=== PATIENT | male | born 1970 | race African-American/Black ===

== ENCOUNTER 2022-02-07 21:47 | Inpatient (IN) | payer OTHER ==
[~2022-02-07] VITALS: Ht 188 cm; Wt 95.3 kg
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
[2022-02-07] MEDS ORDERED: HYDROMORPHONE 1 MG/1 ML DISP.SYRIN ONE (22:13)
[2022-02-07] MEDS ORDERED: ONDANSETRON 4 MG/2 ML VIAL ONE (22:13)
[2022-02-07] MEDS ORDERED: ONDANSETRON 4 MG/2 ML VIAL IV ONE (22:15)
[2022-02-07] MEDS ORDERED: HYDROMORPHONE 1 MG/1 ML DISP.SYRIN IV ONE (22:15)
[2022-02-07 22:32] LABS: HEMATOCRIT 37.2 % (36.7-47.1); MEAN CORPUSCULAR HEMOGLOBIN 32.8 uug (23.8-33.4); MEAN CORPUSCULAR VOLUME 98.5 fL (73.0-96.2); PLATELET COUNT (AUTO) 312 K/uL (152-348)
[2022-02-07 22:34] LABS: POTASSIUM 3.7 mmol/L (3.5-5.1)
[2022-02-07 22:40] LABS: BILIRUBIN,DIRECT 0.1 mg/dL (0.0-0.2); BILIRUBIN,TOTAL 0.2 mg/dL (0.2-1.0)
[2022-02-07] MEDS ORDERED: METF-440 PO (23:02)
[2022-02-07] MEDS ORDERED: ATOR10TA PO (23:02)
[2022-02-07] MEDS ORDERED: ACET-73 PO (23:02)
[2022-02-07] MEDS ORDERED: LOSA100T31 PO (23:02)
[2022-02-07] MEDS ORDERED: FOLI1TAB94 PO (23:02)
[2022-02-07] MEDS ORDERED: INSU100C SQ (23:02)
[2022-02-07] MEDS ORDERED: AMLO2.5T4 PO (23:02)
[2022-02-08] MEDS ORDERED: HYDROMORPHONE 1 MG/1 ML DISP.SYRIN IV ONE
[2022-02-08] MEDS ORDERED: HYDROMORPHONE 1 MG/1 ML DISP.SYRIN ONE (00:03)
--- NOTE | 2022-02-08 03:47 | NUR ---
Called [facility] for panel call. Dr. Murphy marketing information manager.
[2022-02-08 04:00] VITALS: BP 138/94
--- NOTE | 2022-02-08 04:38 | NUR ---
Report given to Katiuska MNAE
--- NOTE | 2022-02-08 05:10 | NUR ---
Pt. admitted to [facility], under care of Dr. Murphy. Belongs List completed ALHAJI Harp aware of patient's arrival.
[2022-02-08] MEDS ORDERED: MORPHINE SULFATE 2 MG/1 ML DISP.SYRIN IV PRN (06:00)
[2022-02-08] MEDS ORDERED: REMEDY ESSENTIAL ZINC PASTE 113 GM TP PRN (06:00)
[2022-02-08] MEDS ORDERED: MAGNESIUM HYDROXIDE 30 ML LIQUID UDC PO PRN (06:00)
[2022-02-08] MEDS ORDERED: ONDANSETRON 4 MG/2 ML VIAL IV PRN (06:00)
[2022-02-08] MEDS ORDERED: HYDROCODONE/APAP 5-325MG TABLET PO PRN (06:00)
[2022-02-08] MEDS ORDERED: ACETAMINOPHEN 325 MG TABLET PO PRN (06:00)
[2022-02-08] MEDS ORDERED: DEXTROSE 50% 50 ML DISP.SYRIN IV PRN (06:00)
[2022-02-08] MEDS ORDERED: ZOLPIDEM 5 MG TABLET PO PRN (06:00)
[2022-02-08] MEDS: BLOOD SUGAR DIAGNOSTIC 1 EACH STRIP VI SCH ×4 (07:05→20:40)
[2022-02-08] MEDS: INSULIN REGULAR, HUMAN 300 UNIT/3 ML VIAL SQ PRN (07:09)
[2022-02-08] MEDS: FOLIC ACID 1 MG TABLET PO SCH (09:00)
[2022-02-08] MEDS: AMLODIPINE 2.5 MG TABLET PO SCH (09:00)
[2022-02-08] MEDS: LOSARTAN POTASSIUM 50 MG TABLET PO SCH (09:00)
[2022-02-08] MEDS: PANTOPRAZOLE SODIUM 40 MG VIAL IV SCH (09:18)
[2022-02-08 10:14] VITALS: BP 176/100
[2022-02-08] MEDS ORDERED: ACETAMINOPHEN ES 500 MG TABLET- SA PATIENTS-PAIN ONLY PO PRN (11:00)
[2022-02-08] MEDS: MORPHINE SULFATE 4 MG/1 ML DISP.SYRIN IV PRN ×2 (11:22→20:34)
[2022-02-08] MEDS: INSULIN LISPRO 300 UNIT/3 ML VIAL SQ SCH ×2 (11:30→17:28)
[2022-02-08 15:52] VITALS: BP 176/119
[2022-02-08] MEDS ORDERED: hydrALAZINE HCL 50 MG TABLET PO PRN (16:00)
--- NOTE | 2022-02-08 16:00 | NUR ---
BP 171/119. REPORTED TO DR. ZAPIEN. NEW ORDER FOR HYDRALAZINE 50MG Q4 PRN. ORDER IN PLACE. ALHAJI CHAPMAN.
--- NOTE | 2022-02-08 16:48 | NUR ---
CURRENT BP 148/93 HR 78 30 MIN AFTER HYDRALAZINE ADMIN. ALHAJI CHAPMAN
[2022-02-08] MEDS: METFORMIN HCL 500 MG TABLET PO SCH (17:19)
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
[2022-02-08 20:00] VITALS: BP 134/99
[2022-02-08] MEDS: ATORVASTATIN 10 MG TABLET PO SCH (20:34)
[2022-02-09] MEDS: MORPHINE SULFATE 4 MG/1 ML DISP.SYRIN IV PRN ×2 (01:31→19:56)
[2022-02-09 04:00] VITALS: BP 151/98
[2022-02-09 06:32] LABS: HEMATOCRIT 36.8 % (36.7-47.1); MEAN CORPUSCULAR HEMOGLOBIN 33.6 uug (23.8-33.4); MEAN CORPUSCULAR VOLUME 97.2 fL (73.0-96.2); PLATELET COUNT (AUTO) 324 K/uL (152-348)
[2022-02-09] MEDS: INSULIN LISPRO 300 UNIT/3 ML VIAL SQ SCH ×3 (06:48→17:05)
[2022-02-09] MEDS: BLOOD SUGAR DIAGNOSTIC 1 EACH STRIP VI SCH ×4 (06:49→20:46)
[2022-02-09] MEDS ORDERED: VANCOMYCIN 1000 MG VIAL ONE (06:54)
[2022-02-09] MEDS ORDERED: FENTANYL CITRATE 100 MCG/2 ML AMPUL ONE ×2 (07:00→10:25)
[2022-02-09] MEDS ORDERED: HYDROMORPHONE 2 MG/1 ML DISP.SYRIN ONE (07:00)
[2022-02-09] MEDS ORDERED: MIDAZOLAM HCL 2 MG/2 ML VIAL ONE (07:01)
[2022-02-09] MEDS ORDERED: FAMOTIDINE. 20 MG/2 ML VIAL IV ONE (07:01)
[2022-02-09] MEDS ORDERED: ROCURONIUM BROMIDE 50 MG/5 ML VIAL ONE (07:01)
[2022-02-09 07:04] LABS: CREATININE 0.9 mg/dL (0.6-1.3); PHOSPHOROUS 3.6 mg/dL (2.5-4.9); POTASSIUM 3.8 mmol/L (3.5-5.1)
--- NOTE | 2022-02-09 07:15 | NUR ---
Report received from Shira RN, Received patient awake, alert, oriented x 4, not in any form of distress, on room air. He denies any pain or discomfort at this time. Kept on NPO since midnight for planned surgery today. Call light placed within reach.
[2022-02-09 07:31] LABS: MAGNESIUM 1.2 mg/dL (1.8-2.4)
--- NOTE | 2022-02-09 07:37 | NUR ---
Patient picked up for surgery.
[2022-02-09] MEDS: METFORMIN HCL 500 MG TABLET PO SCH ×2 (08:00→17:15)
[2022-02-09] MEDS: FOLIC ACID 1 MG TABLET PO SCH (09:00)
[2022-02-09] MEDS: AMLODIPINE 2.5 MG TABLET PO SCH (09:00)
[2022-02-09] MEDS: LOSARTAN POTASSIUM 50 MG TABLET PO SCH (09:00)
[2022-02-09] MEDS: PANTOPRAZOLE SODIUM 40 MG VIAL IV SCH (09:00)
[2022-02-09] MEDS ORDERED: LABETALOL HCL 100 MG/20 ML VIAL ONE (10:25)
[2022-02-09] MEDS ORDERED: POTASSIUM CHLORIDE 20 MEQ in IV D5 1/2 NS 1000 ML 1,000 ML IV PRN (10:45)
[2022-02-09 11:25] LABS: LYMPHOCYTES % (MANUAL) 32 % (20-40); MONOCYTES % (MANUAL) 20 % (2-10); NEUTROPHILS % (MANUAL) 48 % (42-75)
[2022-02-09 11:52] VITALS: BP 129/85
--- NOTE | 2022-02-09 12:00 | NUR ---
Patient back from surgery. Patient is awake, alert, oriented x 4, not in any form of distress on room air. No complain of any pain or discomfort at this time. Dressing on the left hip with scanty drainage which OR nurse reported dressing just changed. Ice pack on left hip. Assisted with his needs. Call light and frequently used items placed within patient's reach.
[2022-02-09 12:15] VITALS: BP 132/89
[2022-02-09 13:45] VITALS: BP 117/88
[2022-02-09] MEDS: HYDROCODONE/APAP 10-325 MG TABLET PO PRN (14:17)
[2022-02-09] MEDS: INSULIN REGULAR, HUMAN 300 UNIT/3 ML VIAL SQ PRN ×3 (14:33→20:50)
[2022-02-09] MEDS: MAGNESIUM SULFATE/D5W 100 ML IV SCH ×4 (14:48→19:59)
[2022-02-09 15:12] VITALS: BP 138/66
[2022-02-09] MEDS: CEFAZOLIN 1 G in IV DEXTROSE 5% 50 ML IV SCH (18:32)
[2022-02-09 20:00] VITALS: BP 125/89
[2022-02-09] MEDS: ATORVASTATIN 10 MG TABLET PO SCH (20:50)
[2022-02-10] MEDS: HYDROCODONE/APAP 10-325 MG TABLET PO PRN ×4 (00:24→20:55)
[2022-02-10] MEDS: CEFAZOLIN 1 G in IV DEXTROSE 5% 50 ML IV SCH (00:56)
[2022-02-10 04:00] VITALS: BP 126/89
[2022-02-10] MEDS: MORPHINE SULFATE 4 MG/1 ML DISP.SYRIN IV PRN (05:14)
[2022-02-10 06:42] LABS: MAGNESIUM 1.6 mg/dL (1.8-2.4); POTASSIUM 3.8 mmol/L (3.5-5.1)
[2022-02-10] MEDS: BLOOD SUGAR DIAGNOSTIC 1 EACH STRIP VI SCH ×4 (06:44→20:54)
--- NOTE | 2022-02-10 06:47 | NUR ---
Patient slept intermittently, in no acute distress. Medicated for left leg pain with good effect. Left hip dressing intact with moderate amount of blood stain. Needs assessed and attended to. Call light within reach.
[2022-02-10] MEDS: INSULIN REGULAR, HUMAN 300 UNIT/3 ML VIAL SQ PRN ×4 (07:27→20:54)
[2022-02-10] MEDS: INSULIN LISPRO 300 UNIT/3 ML VIAL SQ SCH ×3 (07:31→15:52)
[2022-02-10] MEDS: LOSARTAN POTASSIUM 50 MG TABLET PO SCH (08:21)
[2022-02-10] MEDS: AMLODIPINE 2.5 MG TABLET PO SCH (08:21)
[2022-02-10] MEDS: PANTOPRAZOLE SODIUM 40 MG TABLET.DR PO SCH (08:21)
[2022-02-10] MEDS: METFORMIN HCL 500 MG TABLET PO SCH ×2 (08:21→17:07)
[2022-02-10] MEDS: FOLIC ACID 1 MG TABLET PO SCH (08:21)
[2022-02-10] MEDS ORDERED: MAGNESIUM OXIDE 400 MG TABLET PO ONE (10:00)
[2022-02-10 11:50] VITALS: BP 117/72
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
[2022-02-10 16:07] VITALS: BP 107/68
[2022-02-10] MEDS: ATORVASTATIN 10 MG TABLET PO SCH (20:26)
[2022-02-10 20:32] VITALS: BP 106/64
[2022-02-11] MEDS: HYDROCODONE/APAP 10-325 MG TABLET PO PRN ×2 (02:44→09:29)
[2022-02-11 04:16] VITALS: BP 131/90
[2022-02-11] MEDS: PANTOPRAZOLE SODIUM 40 MG TABLET.DR PO SCH (06:02)
[2022-02-11] MEDS: BLOOD SUGAR DIAGNOSTIC 1 EACH STRIP VI SCH ×2 (06:41→10:51)
[2022-02-11 07:13] LABS: MAGNESIUM 1.5 mg/dL (1.8-2.4); POTASSIUM 3.9 mmol/L (3.5-5.1)
[2022-02-11] MEDS: INSULIN LISPRO 300 UNIT/3 ML VIAL SQ SCH ×2 (07:51→11:26)
[2022-02-11] MEDS: INSULIN REGULAR, HUMAN 300 UNIT/3 ML VIAL SQ PRN ×2 (07:52→11:28)
[2022-02-11] MEDS: METFORMIN HCL 500 MG TABLET PO SCH (08:12)
[2022-02-11] MEDS: LOSARTAN POTASSIUM 50 MG TABLET PO SCH (08:12)
[2022-02-11] MEDS: FOLIC ACID 1 MG TABLET PO SCH (08:12)
[2022-02-11] MEDS: AMLODIPINE 2.5 MG TABLET PO SCH (08:12)
[2022-02-11] MEDS: MAGNESIUM SULFATE/D5W 100 ML IV SCH ×2 (09:53→10:54)
[2022-02-11 11:12] VITALS: BP 119/60
[2022-02-11] MEDS ORDERED: PANT40TA49 PO (11:17)
[2022-02-11] MEDS ORDERED: IBUP-1955 PO (11:17)
--- NOTE | 2022-02-11 13:49 | NUR ---
dc orders received noted and carried out,dc heplock per md orders.dc instruction and education given to the pt.pt left the facility via ambulances in stable condition
== END 2022-02-11 13:55 | disposition home health service (06) | DRG 308 ==
LOC: ER 21:51 → MEDSURG3 02-08 04:00
PROVIDERS: ADMIT Nurse Practitioner Acute Care; ATTEND Nurse Practitioner Acute Care
PROC: 0QS736Z Reposition Left Upper Femur with Intramedullary Internal Fixation Device, Percutaneous Approach (ICD-10-PCS; principal; 2022-02-09)
DX: S72.142A Displaced intertrochanteric fracture of left femur, initial encounter for closed fracture (principal); E87.1 Hypo-osmolality and hyponatremia; E11.9 Type 2 diabetes mellitus without complications; S72.22XA Displaced subtrochanteric fracture of left femur, initial encounter for closed fracture; Z79.4 Long term (current) use of insulin; E78.5 Hyperlipidemia, unspecified; I10 Essential (primary) hypertension; W18.30XA Fall on same level, unspecified, initial encounter; Y93.E1 Activity, personal bathing and showering; Y92.002 Bathroom of unspecified non-institutional (private) residence as the place of occurrence of the external cause; W34.00XS Accidental discharge from unspecified firearms or gun, sequela; Z20.822 Contact with and (suspected) exposure to COVID-19; E83.42 Hypomagnesemia
CPT/HCPCS: 36415; 70030-TC; 71045; 73502; 73503; 73700; 83735; 84100; 85025; 85730; A4649; A6209; C1713; C9113; G0378; J0690; J1170; J1815; J2250; J2270; J2405; J3010; J3370; J3475; J3480; J3490